=== PATIENT | male | born 1965 | race Caucasian/White ===

== ENCOUNTER 2018-11-24 10:48 | Day surgery (SDC) | payer OTHER ==
[2018-11-22 10:43] VITALS: BMI 33.7
[~2018-11-24 10:48] MED LIST: LACTATED RINGERS 1,000 ML IV SCH; LIDOCAINE 1% 20 ML VIAL (10MG/ML) FOR IV START INTRADERMA PRN
[2018-11-24 11:02] VITALS: RESP 16; TEMP 97.1
[2018-11-24] MEDS ORDERED: fentaNYL (PF) 50 MCG/ML 2 ML AMP ONE (11:52)
[2018-11-24] MEDS ORDERED: PROPOFOL 10 MG/ML 20 ML VIAL IV ONE (11:52)
[2018-11-24] MEDS ORDERED: MIDAZOLAM 2 MG/2 ML VIAL ONE (11:52)
--- NOTE | 2018-11-24 11:57 | P.GSHP ---
History of Present Illness H&P Date: 11/24/18 Chief Complaint: Colon cancer screening Patient here today for colonoscopy. He has not had one previously. No bowel related complaints. No family history colon cancer. Past Medical History Past Medical History: Hyperlipidemia, Hypertension History of Any Multi-Drug Resistant Organisms: None Reported Past Surgical History: Hernia Repair, Orthopedic Surgery Additional Past Surgical History / Comment(s): HERNIA X 2. RT KNEE SX Past Anesthesia/Blood Transfusion Reactions: No Reported Reaction Smoking Status: Former smoker - Past Family History Father Family Medical History: Cancer Medications and Allergies Home Medications Medication Instructions Recorded Confirmed Type Atorvastatin [Lipitor] 20 mg PO DAILY 11/22/18 11/24/18 History Gemfibrozil [Lopid] 600 mg PO HS 11/22/18 11/24/18 History Lisinopril [Zestril] 20 mg PO DAILY 11/22/18 11/24/18 History Allergies Allergy/AdvReac Type Severity Reaction Status Date / Time No Known Allergies Allergy Verified 11/24/18 11:02 Surgical - Exam Vital Signs Temp Pulse Resp BP Pulse Ox 97.1 F L 95 16 134/80 98 11/24/18 11:01 11/24/18 11:01 11/24/18 11:01 11/24/18 11:01 11/24/18 11:01 Physical exam: General: Well-developed, well-nourished HEENT: Normocephalic, sclerae nonicteric Abdomen: Nontender, nondistended Extremities: No edema Neuro: Alert and oriented Assessment and Plan (1) Colon cancer screening Narrative/Plan: Will proceed with colonoscopy Current Visit: Yes Status: Acute Code(s): Z12.11 - ENCOUNTER FOR SCREENING FOR MALIGNANT NEOPLASM OF COLON SNOMED Code(s): 345303648
--- NOTE | 2018-11-24 12:39 | P.PCN ---
Date of Procedure: 11/24/18 Procedure(s) Performed: PREOPERATIVE DIAGNOSIS: Colon cancer screening POSTOPERATIVE DIAGNOSIS: Ascending colon polyp, diverticulosis PROCEDURE: Colonoscopy with snare polypectomy ANESTHESIA: MAC SURGEON: Ronal Cardozo M.D. SPECIMENS: Ascending colon polyp ENDOSCOPIC PROCEDURE: The patient was placed on the endoscopy table in the left decubitus position. The Olympus colonoscope was inserted into the anus and passed under direct visualization to the base of the cecum. The appendiceal orifice was visualized. From that point the scope was slowly withdrawn inspecting all surfaces carefully. There were no neoplastic inflammatory or polypoid lesions throughout the cecum. In the ascending colon a small the medium sized polyp was identified and removed using the snare with cautery technique. On one view we thought there may have been a small polyp across from that however numerous attempts to look at that area again did not reveal any polypoid tissue. The remainder of the transverse descending sigmoid and rectum appeared normal. There was mild left-sided diverticulosis. Digital rectal ex amination was normal. The patient was taken to the recovery room in stable condition per anesthesia guidelines. RECOMMENDATIONS: Await biopsy results. Recommend follow-up colonoscopy 3-5 years.
[2018-11-24 12:40] VITALS: BP 106/73; PULSE 83
== END 2018-11-24 13:07 | disposition home or self-care (01) ==
LOC: ORWHC2ENDO 10:48
PROVIDERS: ATTEND Surgery
DX: Z12.11 Encounter for screening for malignant neoplasm of colon (principal); D12.2 Benign neoplasm of ascending colon; K57.30 Diverticulosis of large intestine without perforation or abscess without bleeding; I10 Essential (primary) hypertension; E78.5 Hyperlipidemia, unspecified; Z87.891 Personal history of nicotine dependence; Z79.899 Other long term (current) drug therapy
CPT/HCPCS: 88305; 45385; J2250; J3010; J2704

== ENCOUNTER → 2023-02-26 | Outpatient (CLI) | payer OTHER ==
[2023-02-26 13:36] LABS: Basophils # (A) 0.05 X 10*3/uL (0.00-0.10); Basophils % (A) 0.8 %; Eosinophils # (A) 0.24 X 10*3/uL (0.04-0.35); Eosinophils % (A) 3.6 %; HCT 43.7 % (39.6-50.0); Lymphocytes # (A) 2.01 X 10*3/uL (0.90-5.00); Lymphocytes % (A) 30.2 %; MCH 32.2 pg (27.0-32.0); MCV 100.5 FL (80.0-97.0); Mean Platelet Volume 10.3 FL (9.5-12.2); Monocytes # (A) 0.72 X 10*3/uL (0.20-1.00); Monocytes % (A) 10.8 %; NRBC Per 100 WBC 0 X 10*3/uL (0.00-0.01); Neutrophils # (A) 3.52 X 10*3/uL (1.80-7.70); Neutrophils % (A) 52.9 %; Platelet Count 265 X 10*3/uL (140-440); RBC 4.35 X 10*6/uL (4.40-5.60); RDW 12.2 % (11.5-14.5); WBC 6.65 X 10*3/uL (4.50-10.00)
[2023-02-26 13:55] LABS: ALT 30 U/L (10-49); AST 19 U/L (14-35); Albumin 4.5 d/dL (3.8-4.9); Albumin/Globulin Ratio 1.73 Ratio (1.60-3.17); Alkaline Phosphatase 67 U/L (41-126); BUN/Creat Ratio 20.67 Ratio (12.00-20.00); Blood Urea Nitrogen 18.6 mg/dL (9.0-27.0); Calcium 9.5 mg/dL (8.7-10.3); Carbon Dioxide 24.7 mmol/L (21.6-31.8); Chloride 106 mmol/L (96-109); Chol/HDL Ratio 4.28 Ratio; Globulin 2.6 d/dL (1.6-3.3); Glucose 113 mg/dL (70-110); LDL Cholesterol,Calculated 90.7 mg/dL (0.0-131.0); Potassium 4.5 mmol/L (3.5-5.5); Prostate Specific Antigen 2.63 ng/mL (0.000-3.500); Sodium 142 mmol/L (135-145); Total Bilirubin 0.4 mg/dL (0.3-1.2); Total Protein 7.1 d/dL (6.2-8.2)
== END | disposition home or self-care (01) ==
LOC: LABWHC1 09:03
PROVIDERS: ATTEND Family Medicine
DX: Z00.00 Encounter for general adult medical examination without abnormal findings (principal); Z12.5 Encounter for screening for malignant neoplasm of prostate; Z13.228 Encounter for screening for other metabolic disorders; Z13.29 Encounter for screening for other suspected endocrine disorder; I10 Essential (primary) hypertension; E78.00 Pure hypercholesterolemia, unspecified
CPT/HCPCS: 36415; 80053; 80061; 84153; 84443; 85025

== ENCOUNTER 2023-07-12 08:36 | Day surgery (SDC) | payer OTHER ==
[2023-07-12] MEDS: LACTATED RINGERS 1,000 ML IV SCH (09:35)
[2023-07-12] MEDS ORDERED: LIDOCAINE 1% INJ 10MG/ML (20 ML MDV) ONE (10:01)
[2023-07-12] MEDS ORDERED: PROPOFOL 10 MG/ML 20 ML VIAL IV ONE (10:01)
--- NOTE | 2023-07-12 10:02 | P.GSHP ---
History of Present Illness H&P Date: 07/12/23 Chief Complaint: Colon cancer screening 57-year-old male here for colonoscopy. Patient had an adenoma 5 years ago. No bowel complaints. No family history of colon cancer. Past Medical History Past Medical History: Hyperlipidemia, Hypertension History of Any Multi-Drug Resistant Organisms: None Reported Past Surgical History: Hernia Repair, Orthopedic Surgery Additional Past Surgical History / Comment(s): umbilical hernia, inguinal hernia repair as , colonoscopy w/ benign polyp. RT KNEE SX Past Anesthesia/Blood Transfusion Reactions: No Reported Reaction Smoking Status: Former smoker - Past Family History Father Family Medical History: Cancer Medications and Allergies Home Medications Medication Instructions Recorded Confirmed Type Atorvastatin [Lipitor] 20 mg PO QAM 11/22/18 07/12/23 History gemfibroziL [Lopid] 600 mg PO QAM 11/22/18 07/12/23 History lisinopriL [Zestril] 20 mg PO QAM 11/22/18 07/12/23 History Allergies Allergy/AdvReac Type Severity Reaction Status Date / Time No Known Allergies Allergy Verified 07/12/23 09:34 Surgical - Exam Physical exam: General: Well-developed, well-nourished HEENT: Normocephalic, sclerae nonicteric Abdomen: Nontender, nondistended Extremities: No edema Neuro: Alert and oriented Assessment and Plan (1) Colon cancer screening Narrative/Plan: Will proceed with colonoscopy at this time. Current Visit: No Status: Acute Code(s): Z12.11 - ENCOUNTER FOR SCREENING FOR MALIGNANT NEOPLASM OF COLON SNOMED Code(s): 361764658
--- NOTE | 2023-07-12 10:20 | P.PCN ---
Date of Procedure: 07/12/23 Procedure(s) Performed: PREOPERATIVE DIAGNOSIS: Colon cancer screening POSTOPERATIVE DIAGNOSIS: Hepatic flexure polyp, rectal polyp, diverticulosis PROCEDURE: Colonoscopy with snare polypectomy ANESTHESIA: MAC SURGEON: Ronal Cardozo M.D. SPECIMENS: Polyps ENDOSCOPIC PROCEDURE: The patient was placed on the endoscopy table in the left decubitus position. The Olympus colonoscope was inserted into the anus and passed under direct visualization to the base of the cecum. The appendiceal orifice was visualized. From that point the scope was slowly withdrawn inspecting all surfaces carefully. There were no neoplastic inflammatory or polypoid lesions throughout the cecum or ascending colon. At the hepatic flexure a small polyp was seen and removed using the snare with cautery technique. The remainder of the transverse descending and sigmoid colon appeared normal. In the rectum another small polyp was seen and removed in a similar fashion. The patient had mild left-sided diverticulosis. Digital rectal examination was normal. The patient was taken to the recovery room in stable condition per anesthesia guidelines. RECOMMENDATIONS: Await biopsy results. Anticipate repeat colonoscopy 5 years.
[2023-07-12 10:35] VITALS: TEMP 96.9
[2023-07-12 11:10] VITALS: BP 117/79; PULSE 91; RESP 16
== END 2023-07-12 11:13 | disposition home or self-care (01) ==
LOC: ORWHC2ENDO 08:36
PROVIDERS: ATTEND Surgery
DX: Z12.11 Encounter for screening for malignant neoplasm of colon (principal); D12.3 Benign neoplasm of transverse colon; E78.5 Hyperlipidemia, unspecified; I10 Essential (primary) hypertension; K62.1 Rectal polyp; Z87.891 Personal history of nicotine dependence; Z79.899 Other long term (current) drug therapy
CPT/HCPCS: 88305; 45385; J2001; J2704

== ENCOUNTER → 2024-03-23 | Outpatient (CLI) | payer OTHER ==
[2024-03-23 15:28] LABS: Basophils # (A) 0.08 X 10*3/uL (0.00-0.10); Basophils % (A) 1.3 %; Eosinophils # (A) 0.18 X 10*3/uL (0.04-0.35); HCT 43.2 % (39.6-50.0); HGB 14.2 g/dL (13.0-17.0); Lymphocytes % (A) 33.2 %; MCH 33.3 pg (27.0-32.0); MCHC 32.9 g/dL (32.0-37.0); MCV 101.4 FL (80.0-97.0); Mean Platelet Volume 10.5 FL (9.5-12.2); NRBC Per 100 WBC 0 X 10*3/uL (0.00-0.01); Neutrophils % (A) 51.5 %; Platelet Count 280 X 10*3/uL (140-440); RBC 4.26 X 10*6/uL (4.40-5.60); RDW 12.5 % (11.5-14.5); WBC 6.02 X 10*3/uL (4.50-10.00)
[2024-03-23 15:55] LABS: Chol/HDL Ratio 3.87 Ratio
[2024-03-23 15:56] LABS: ALT 33 U/L (10-49); AST 26 U/L (14-35); Albumin 4.5 g/dL (3.8-4.9); Albumin/Globulin Ratio 1.73 Ratio (1.60-3.17); Alkaline Phosphatase 71 U/L (41-126); BUN/Creat Ratio 13.56 Ratio (12.00-20.00); Blood Urea Nitrogen 12.2 mg/dL (9.0-27.0); Calcium 9.5 mg/dL (8.7-10.3); Carbon Dioxide 23.7 mmol/L (21.6-31.8); Chloride 104 mmol/L (96-109); Globulin 2.6 g/dL (1.6-3.3); Glucose 123 mg/dL (70-110); LDL Cholesterol,Calculated 99.1 mg/dL (0.0-131.0); Potassium 4.4 mmol/L (3.5-5.5); Prostate Specific Antigen 3.48 ng/mL (0.000-3.500); Sodium 140 mmol/L (135-145); Total Bilirubin 0.5 mg/dL (0.3-1.2); Total Protein 7.1 g/dL (6.2-8.2)
== END | disposition home or self-care (01) ==
LOC: LABWHC1 08:07
PROVIDERS: ATTEND Family Medicine
DX: Z00.00 Encounter for general adult medical examination without abnormal findings (principal); I10 Essential (primary) hypertension; E78.00 Pure hypercholesterolemia, unspecified; K42.9 Umbilical hernia without obstruction or gangrene; E66.09 Other obesity due to excess calories; Z68.36 Body mass index [BMI] 36.0-36.9, adult; Z87.891 Personal history of nicotine dependence
CPT/HCPCS: 36415; 80053; 80061; 84153; 84443; 85025